=== PATIENT | male | born 1955 | race Caucasian/White ===

== ENCOUNTER → 2021-07-05 14:26 | Outpatient (BNVA) | payer MEDICARE, MEDICAID, SELFPAY | PROVIDERS: PCP Hospitalist; Visit Provider Urology | DX: N20.0 Calculus of kidney (principal); N40.1 Benign prostatic hyperplasia with lower urinary tract symptoms; N13.8 Other obstructive and reflux uropathy; R97.20 Elevated prostate specific antigen [PSA]; E78.5 Hyperlipidemia, unspecified; Z87.891 Personal history of nicotine dependence | CPT/HCPCS: 99212 ==

== ENCOUNTER 2022-04-25 14:33 | Outpatient (REF) | payer MEDICARE, MEDICAID, SELFPAY ==
--- NOTE | ~2022-04-25 | US_ITS ---
EXAMINATION: US RETROPERITONEAL LIMITED (RENAL ONLY) CLINICAL INFORMATION: Calculus of kidney. COMPARISON: US retroperitoneal limited (renal only) 12/29/2018 and 12/29/2017. TECHNIQUE: Real-time imaging of the kidneys. FINDINGS: RIGHT KIDNEY: 11.7 x 4.9 x 5.5 cm (SAG x AP x TRV). The kidney is normal in size, contour, and echogenicity. Renal cortical thickness is normal. No renal calculi or hydronephrosis. There is a complex anechoic cyst measuring 1.9 x 1.9 x 2.0 cm. It is the same cyst seen on the previous exam in the midpole on the 12/30/2018 exam. LEFT KIDNEY: 13.5 x 6.2 x 5.7 cm (SAG x AP x TRV). The kidney is normal in size, contour, and echogenicity. Renal cortical thickness is normal. No calculi or focal parenchymal lesions. No hydronephrosis. ADDITIONAL FINDINGS: None. US/US renal BI IMPRESSION: There is complex 2 cm cyst in the midpole of the right kidney with internal echoes. Previously it measured 1.6 cm. There are no echogenic stones or hydronephrosis. Previously visualized 2 mm paracolic calcification of the right kidney is not seen.
== END 2022-04-25 14:34 | disposition home or self-care (01) ==
LOC: HO.HMGCX 14:33
PROVIDERS: Visit Provider Urology
DX: N20.0 Calculus of kidney (principal)
CPT/HCPCS: 76775

== ENCOUNTER → 2022-07-04 14:19 | Outpatient (BNVA) | payer MEDICARE, MEDICAID, SELFPAY | PROVIDERS: PCP Hospitalist; Visit Provider Urology | DX: N28.1 Cyst of kidney, acquired (principal); N40.1 Benign prostatic hyperplasia with lower urinary tract symptoms; N13.8 Other obstructive and reflux uropathy; N20.0 Calculus of kidney | CPT/HCPCS: 99212 ==

== ENCOUNTER 2023-06-30 11:37 | Outpatient (REF) | payer MEDICARE, SELFPAY ==
--- NOTE | ~2023-06-30 | US_ITS ---
EXAMINATION: US RETROPERITONEAL LIMITED (RENAL ONLY) CLINICAL INFORMATION: Cyst of kidney, acquired. COMPARISON: Bilateral renal ultrasound dated 04/25/2022. Renals only ultrasound dated 12/29/2018. TECHNIQUE: Real-time imaging of the kidneys. Limited visualization due to bowel gas. FINDINGS: RIGHT KIDNEY: 12.2 x 6.4 x 5.1 cm (SAG x AP x TRV). There is a 0.4 cm midpole calculus. No hydronephrosis. Limited visualization. Right renal midpole 1.8 cm complex anechoic area with low-level internal echoes is difficult to characterize as visualization limited due to bowel gas, but likely represents previously identified right mid pole cyst which measured 2.0 cm on 04/25/2022 and 1.6 cm on 12/30/2018. LEFT KIDNEY: 13.1 x 6.4 x 4.7 cm (SAG x AP x TRV). No hydronephrosis. No renal calculi. Limited visualization. US/US renal BI IMPRESSION: Right renal midpole 1.8 cm anechoic area with complex low-level internal echoes is difficult to characterize as visualization limited due to bowel gas, but likely represents previously identified complex right mid pole cyst which measured 2.0 cm on 04/25/2022 and 1.6 cm on 12/30/2018. CT scan should be considered for better visualization.
== END 2023-06-30 11:38 | disposition home or self-care (01) ==
LOC: HO.US 11:37
PROVIDERS: PCP Hospitalist; Visit Provider Urology
DX: N28.1 Cyst of kidney, acquired (principal)
CPT/HCPCS: 76775

== ENCOUNTER 2023-08-15 10:01 | Outpatient (AMB) | payer MEDICARE, SELFPAY ==
--- NOTE | 2023-08-21 14:57 | A.OFFVIS_ITS ---
Intake Intake Visit Reasons: 1Y US(set) Allergies No Known Allergies Allergy (Verified 07/04/22 14:32) HPI HPI Comments History of Present Illness Details Radu is a very pleasant male. He is a patient of Dr. Hanson. He is seen for the following urologic issues - renal stones - BPH - elevated PSA [facility] resident Discussed imaging findings Complex renal cyst on right side 4 mm stone stable Lower urinary tract symptoms Currently not on medication Minimal symptoms PSA 06/23 0.1 Nephrolithiasis Prior demonstration of small asymptomatic stones Current plan has been to continue interval surveillance Recommendation to hydrate and use limit therapy Twelve month follow-up imaging [facility] Medical History BPH (benign prostatic hyperplasia) Dementia Depression Headache History of kidney stones Hyperlipidemia Mood disorder Open-angle glaucoma Psychosis Sleep apnea Syncope Surgical History History of surgery Social History Patient Tobacco Use Status: Former Tobacco user Review of Systems Const Denies chills and Denies fever(s) Card Reports no additional complaints and Denies syncope Resp Denies cough GI Denies abdominal pain and Denies heartburn Reports as per HPI and Denies change in libido Neuro Denies syncope Psych Denies change in libido Endo Denies change in libido Physical Exam Const General: cooperative, healthy appearing, comfortable and no acute distress Orientation/consciousness: patient oriented x3 HEENT Face and sinus: Yes normal facial exam Mouth: moist mucous membranes Neck Neck: Yes normal visual inspection, Yes full ROM and Yes trachea midline Chest Chest palpation & inspection: normal inspection of the chest Resp Effort & Inspection: normal respiratory effort, able to speak in complete sentences and no respiratory distress GI Inspection: Yes normal to inspection Back/Spine/Pelvis Cervical Spine: normal cervical lordosis Thoracic/Lumbar Spine: thoracic and lumbar spine normal to inspection Skin General skin exam: no rashes or lesions noted Neuro General: patient oriented x3, gait normal, tone normal and moves all extremities Extrem General: Yes normal to inspection and Yes capillary refill normal Assessment & Plan Assessment & Plan (1) Renal cyst: Code(s): N28.1 - Cyst of kidney, acquired (2) Nephrolithiasis: Code(s): N20.0 - Calculus of kidney Plan Twelve month follow-up Orders: Orders US renal BI 364 Days N28.1 - Cyst of kidney, acquired Patient Instructions: Imaging studies, laboratory and physical exam results were discussed and reviewed in detail. No major barriers to patient understanding were identified. An opportunity to ask questions regarding the treatment plan was provided. All questions were answered. The patient expressed understanding and agreement with the above treatment plan. The patient is aware they should contact our office by phone for worsening of their current condition or the appearance of new urologic symptoms. Compliance is encouraged with any medications and followup testing that is ordered. It is a privilege to participate in the urologic care of your patient. If you have any questions or concerns regarding treatment for the above conditions, or other urologic issues, please do not hesitate to contact me. The office telephone contact is [phone]. This note is constructed using voice recognition software. While every effort has been made to ensure accuracy caddie supervisor errors may have been included. Yours sincerely, Dr Robin Perdue MD, [facility] - Urology Providers of Expert, Compassionate Care for the Genitourinary System Coding Level of Care Code Est Pt Level 4 (90393) Diagnoses Renal cyst N28.1 Nephrolithiasis N20.0
== END 2023-08-15 11:10 | disposition home or self-care (01) ==
LOC: HO.HUSH 10:01
PROVIDERS: PCP Hospitalist; Visit Provider Urology
DX: N28.1 Cyst of kidney, acquired (principal); N20.0 Calculus of kidney
CPT/HCPCS: 99213

== ENCOUNTER → 2023-08-15 10:01 | Outpatient (BNVA) | payer MEDICARE, SELFPAY | PROVIDERS: PCP Hospitalist; Visit Provider Urology | DX: N28.1 Cyst of kidney, acquired (principal); N20.0 Calculus of kidney | CPT/HCPCS: 99212 ==

== ENCOUNTER 2024-08-04 08:46 | Outpatient (REF) | payer MEDICARE, MEDICAID, SELFPAY ==
--- NOTE | ~2024-08-04 | US_ITS ---
EXAMINATION: US RETROPERITONEAL LIMITED (RENAL ONLY) CLINICAL INFORMATION: Cyst of kidney, acquired. COMPARISON: Ultrasound renal 06/30/2023 and 04/25/2022. TECHNIQUE: Real-time imaging of the kidneys. FINDINGS: RIGHT KIDNEY: 12.0 x 5.8 x 5.2 cm (SAG x AP x TRV). The kidney is normal in size, contour, and echogenicity. Renal cortical thickness is normal. No renal calculi or hydronephrosis. A benign mid renal 2.4 cm Bosniak class I renal cyst is noted which requires no additional imaging or followup. This has been noted in the past and is slightly larger. No solid renal masses are seen. LEFT KIDNEY: 12.2 x 5.8 x 6.0 cm (SAG x AP x TRV). The kidney is normal in size, contour, and echogenicity. Renal cortical thickness is normal. No calculi or focal parenchymal lesions. No hydronephrosis. US/US renal BI IMPRESSION: Negative exam. Electronically signed by: Hollis Jeff MD 09/16/2024 11:51 AM EST
== END 2024-08-04 08:47 | disposition home or self-care (01) ==
LOC: HO.US 08:46
PROVIDERS: PCP Hospitalist; Visit Provider Urology
DX: N28.1 Cyst of kidney, acquired (principal)
CPT/HCPCS: 76775

== ENCOUNTER 2024-08-17 09:34 | Outpatient (AMB) | payer MEDICARE, SELFPAY ==
--- NOTE | 2024-08-17 09:37 | MHC.OFFVIS ---
Intake Visit Reasons: 1Y US(set) Intake Note: Patient is present for 1Y F/U Urology Medication:NONE Antibiotic Allergy:NONE Blood Thinner:NONE Beauty Director Required: No Allergies No Known Allergies Allergy (Verified 08/17/24 09:38) HPI Comments Details: Radu is a very pleasant male. He is a patient of Dr. Hanson. He is seen for the following urologic issues - renal stones - BPH - elevated PSA [facility] resident Discussed imaging findings Complex renal cyst on right side stable No evidence of stones Lower urinary tract symptoms Currently not on medication Minimal symptoms PSA 06/23 0.1 Nephrolithiasis Prior demonstration of small asymptomatic stones Current plan has been to continue interval surveillance Recommendation to hydrate and use limit therapy Imaging - 05/26 renal ultrasound 2.4 cm complex cyst stable P.r.n. follow-up [facility] Medical History BPH (benign prostatic hyperplasia) Dementia Depression Headache History of kidney stones Hyperlipidemia Mood disorder Open-angle glaucoma Psychosis Sleep apnea Syncope Surgical History History of surgery Social History Patient Tobacco Use Status: Former Tobacco user Review of Systems Const Denies chills and Denies fever(s) Card Reports no additional complaints and Denies syncope Resp Denies cough GI Denies abdominal pain and Denies heartburn Reports as per HPI and Denies change in libido Neuro Denies syncope Psych Denies change in libido Endo Denies change in libido Physical Exam Const General: cooperative, healthy appearing, comfortable and no acute distress Orientation/consciousness: patient oriented x3 HEENT Face and sinus: Yes normal facial exam Mouth: moist mucous membranes Neck Neck: Yes normal visual inspection, Yes full ROM and Yes trachea midline Chest Chest palpation & inspection: normal inspection of the chest Resp Effort & Inspection: normal respiratory effort, able to speak in complete sentences and no respiratory distress GI Inspection: Yes normal to inspection Back/Spine/Pelvis Cervical Spine: normal cervical lordosis Thoracic/Lumbar Spine: thoracic and lumbar spine normal to inspection Skin General skin exam: no rashes or lesions noted Neuro General: patient oriented x3, gait normal, tone normal and moves all extremities Extrem General: Yes normal to inspection and Yes capillary refill normal Results AMB Urinalysis, Automated UA Leukoctes 0 Srinath/uL Last Edit [facility] 08/17/24 09:49 UA Nitrite Negative Last Edit by Shane Burt [facility] on 08/17/24 09:49 UA Urobilinogen 0.2 mg/dL Last Edit by Shane Burt [facility] on 08/17/24 09:49 UA Protein 15 mg/dL Last Edit by Shane Burt [facility] on 08/17/24 09:49 UA pH 6.0 Last Edit by Shane Burt [facility] on 08/17/24 09:49 UA Blood 0 Steven/uL Last Edit by Shane Burt [facility] on 08/17/24 09:49 UA Specific [place] 1.020 Last Edit by Shane Burt [facility] on 08/17/24 09:49 UA Ketone Negative Last Edit by Shane Burt [facility] on 08/17/24 09:49 UA Bilirubin 0 mg/dL Last Edit by Shane Burt [facility] on 08/17/24 09:49 UA Glucose 0 mg/dL Last Edit by Shane Burt [facility] on 08/17/24 09:49 Results Reviewed Results Reviewed: Laboratory Last Values Urine pH (Auto) 6.0 08/17/24 09:48 Specific [place] (Auto) 1.020 08/17/24 09:48 Urine Protein (Auto) 15 mg/dL 08/17/24 09:48 Glucose (UA)(Auto) 0 mg/dL 08/17/24 09:48 Urine Ketones (Auto) Negative 08/17/24 09:48 Urine Blood (Auto) 0 Steven/uL 08/17/24 09:48 Urine Nitrite (Auto) Negative 08/17/24 09:48 Urine Bilirubin (Auto) 0 mg/dL 08/17/24 09:48 Urine Urobilinogen (Auto) 0.2 mg/dL 08/17/24 09:48 Leukocyte Esterase (Auto) 0 Rsinath/uL 08/17/24 09:48 Assessment & Plan Assessment & Plan (1) Renal cyst: Code(s): N28.1 - Cyst of kidney, acquired Category: Medical (2) BPH loc w urin obs/LUTS: Code(s): N40.1 - Benign prostatic hyperplasia with lower urinary tract symptoms Category: Medical (3) Nephrolithiasis: Code(s): N20.0 - Calculus of kidney Category: Medical Plan P.r.n. follow-up Orders: Orders AMB Urinalysis Automated Today Z13.9 - Encounter for screening, unspecified Patient Instructions: Imaging studies, laboratory and physical exam results were discussed and reviewed in detail. No major barriers to patient understanding were identified. An opportunity to ask questions regarding the treatment plan was provided. All questions were answered. The patient expressed understanding and agreement with the above treatment plan. The patient is aware they should contact our office by phone for worsening of their current condition or the appearance of new urologic symptoms. Compliance is encouraged with any medications and followup testing that is ordered. It is a privilege to participate in the urologic care of your patient. If you have any questions or concerns regarding treatment for the above conditions, or other urologic issues, please do not hesitate to contact me. The office telephone contact is [phone]. This note is constructed using voice recognition software. While every effort has been made to ensure accuracy hand bookbinder errors may have been included. Yours sincerely, Dr Robin Perdue MD, [facility] - Urology Providers of Expert, Compassionate Care for the Genitourinary System Coding Level of Care Code Est Pt Level 4 (78177) Diagnoses Renal cyst N28.1 BPH loc w urin obs/LUTS N40.1 Nephrolithiasis N20.0
== END 2024-08-17 10:07 | disposition home or self-care (01) ==
PROVIDERS: PCP Hospitalist; Visit Provider Urology
DX: N28.1 Cyst of kidney, acquired (principal); N40.1 Benign prostatic hyperplasia with lower urinary tract symptoms; N20.0 Calculus of kidney; Z13.9 Encounter for screening, unspecified
CPT/HCPCS: 99214

== ENCOUNTER → 2024-08-17 09:34 | Outpatient (BNVA) | payer MEDICARE, SELFPAY | PROVIDERS: PCP Hospitalist; Visit Provider Urology | DX: N40.1 Benign prostatic hyperplasia with lower urinary tract symptoms (principal); N28.1 Cyst of kidney, acquired; N20.0 Calculus of kidney | CPT/HCPCS: 81003; 99212 ==